=== PATIENT | female | born 1950 | race Caucasian/White ===

== ENCOUNTER 2016-12-01 15:10 | Emergency (ER) | payer MEDICARE ==
--- NOTE | 2016-12-01 16:34 | DIAGNOSTIC IMAGING REPORT ---
PROCEDURE: CT ABDOMEN/PELVIS W/O CONTRAST INDICATION: Right flank pain. TECHNIQUE: Noncontrast axial images were obtained of the entire abdomen and pelvis with sagittal and coronal reformations. COMPARISON: None. FINDINGS: ABDOMEN: 2.5 mm proximal right ureteral calculus with mild right hydronephrosis. There are two additional 1 mm right renal lower pole nonobstructing calculi. Normal left kidney and ureter. Lung base are clear. Heart size is normal. Normal liver. Punctate density in the nondependent portion of the gallbladder, gallstone versus mural calcification. Pancreas, spleen and adrenal glands are normal. Minor atherosclerosis of the aorta. Small hiatal hernia. 1.5 cm fat-containing umbilical hernia. PELVIS: History of appendectomy. Hysterectomy. Mild sigmoid diverticulosis. Adnexa and bladder are unremarkable. Small fat-containing left inguinal hernia. Grade 1 L4-5 anterolisthesis. L5 laminectomy. IMPRESSION: 1. 2.5 mm proximal right ureteral calculus with mild right hydronephrosis 2. Nonobstructing right renal calculi 3. Gallstone versus gallbladder calcification. 4. Hiatal hernia 5. Appendectomy and hysterectomy 6. Results discussed with Dr. Carnes All CT scans at this facility use dose modulation, iterative reconstruction, and/or weight-based dosing when appropriate to reduce radiation dose to as low as reasonably achievable.
--- NOTE | 2016-12-01 17:43 | ED CLINICAL REPORT ---
Clinical Report - Physicians/Mid Levels [facility] [address] [place] [address] 12/01/2016 15:15 Patient: SANDHYA CHARLES Time Seen: 1539; initial patient contact. Arrived- By private vehicle. Historian- patient. HISTORY OF PRESENT ILLNESS Chief Complaint: ABDOMINAL PAIN. This started today. At its maximum, severity described as moderate. When seen in the E.D., severity described as moderate. Modifying factors- worsened by movement. Relieved by rest. No radiation. It is described as located in the right flank. The patient has had nausea. No diarrhea. The patient has an additional complaint of abdominal pain (located in the RLQ). Similar symptoms previously: Once (states it feels similar to kidney stones). REVIEW OF SYSTEMS No fever, chest pain or difficulty breathing. All systems otherwise negative, except as recorded above. PAST HISTORY See nurses notes. Medications: Glucosamine HCl Oral. Lisinopril Oral 10 mg, daily. Allergies: None. SOCIAL HISTORY Never smoker. No alcohol use or drug use. No recent travel. Is a local resident. ADDITIONAL NOTES The nursing notes have been reviewed. PHYSICAL EXAM Vital Signs: 12/01/2016 15:23 BP: 132/61. HR: 65. RR: 16. O2 saturation: 98%. Temp: 97.5 F. Pain level now: 10/10. Oxygen saturation normal. Appearance: Alert. Oriented X3. No acute distress. CVS: Normal heart rate and rhythm. Heart sounds normal. Pulses normal. Respiratory: No respiratory distress. Breath sounds normal. Chest nontender. No rales, rhonchi or wheezes. Abdomen: Soft and nontender. Bowel sounds normal. Back: Normal inspection. Moderate CVA tenderness on the right. Skin: Skin warm and dry. Normal skin color. No rash. Normal skin turgor. Extremities: Extremities exhibit normal ROM. No lower extremity edema. Neuro: No motor deficit. No sensory deficit. LABS, X-RAYS, AND EKG Abdominal CT: . PROCEDURE: CT ABDOMEN/PELVIS W/O CONTRAST INDICATION: Right flank pain. TECHNIQUE: Noncontrast axial images were obtained of the entire abdomen and pelvis with sagittal and coronal reformations. COMPARISON: None. FINDINGS: ABDOMEN: 2.5 mm proximal right ureteral calculus with mild right hydronephrosis. There are two additional 1 mm right renal lower pole nonobstructing calculi. Normal left kidney and ureter. Lung base are clear. Heart size is normal. Normal liver. Punctate density in the nondependent portion of the gallbladder, gallstone versus mural calcification. Pancreas, spleen and adrenal glands are normal. Minor atherosclerosis of the aorta. Small hiatal hernia. 1.5 cm fat-containing umbilical hernia. PELVIS: History of appendectomy. Hysterectomy. Mild sigmoid diverticulosis. Adnexa and bladder are unremarkable. Small fat-containing left inguinal hernia. Grade 1 L4-5 anterolisthesis. L5 laminectomy. IMPRESSION: 1. 2.5 mm proximal right ureteral calculus with mild right hydronephrosis 2. Nonobstructing right renal calculi 3. Gallstone versus gallbladder calcification. 4. Hiatal hernia 5. Appendectomy and hysterectomy. The study was independently viewed by me and interpreted by the radiologist. The study was discussed with the radiologist (via phone and pacs). Laboratory Tests: UA-Culture if indicated: (FLORESITA: 12/01/2016 15:21) ( MsgRcvd 12/01/2016 16:07) Final results Test Result Flag Units (Reference) URINE COLOR YELLOW URINE APPEARANCE SL CLOUDY URINE GLUCOSE NEGATIVE (NEGATIVE) URINE BILIRUBIN NEGATIVE (NEGATIVE) URINE KETONE TRACE (NEGATIVE) URINE SPECIFIC GRAVITY >= 1.030 (1.010-1.030) URINE PH 6.0 (5.0-8.0) URINE PROTEIN NEGATIVE (NEGATIVE) URINE UROBILINOGEN 0.2 EU/dL (0.2-1.0) URINE NITRITE NEGATIVE (NEGATIVE) URINE BLOOD 3+ (NEGATIVE) URINE LEUK ESTERASE TRACE (NEGATIVE) URINE RBC >100 (TNTC) rbc/hpf (0-1) URINE WBC 3-5 wbc/hpf (0-1) URINE EPITHELIAL CELLS 1-3 EPI/hpf (0-5) URINE BACTERIA MODERATE (2+ TO 3+) (NONE SEEN) URINE COMMENT CULTURE INDICATED 1+ MUCUSURINE CULTURES ARE SET-UP BASED ON THE FOLLOWING CRITERIA:POSITIVE NITRITEPOSITIVE LEUKOCYTE ESTERASEGREATER THAN 10 WHITE BLOOD CELLSMODERATE (2+) OR GREATER BACTERIA CBC w Diff: (FLORESITA: 12/01/2016 15:36) ( MsgRcvd 12/01/2016 15:56) Final results Test Result Flag Units (Reference) WHITE BLOOD COUNT 5.3 K/uL (4.5-11.5) RED BLOOD COUNT 4.65 M/uL (4.00-5.20) HEMOGLOBIN 14.2 gm/dL (12.0-16.0) HEMATOCRIT 42.6 % (36.0-46.0) MEAN CELL VOLUME 92 fL (80-100) MEAN CORPUSCULAR HGB 31 pg (26-34) MEAN CORPUSCULAR HGB CONC 33 g/dL (31-37) RED CELL DISTRIBUTION WIDTH 13.4 % (11.6-14.8) PLATELET COUNT 178 K/uL (150-400) NEUTROPHIL % 65.2 % (50-75) LYMPH % 22.5 L % (25-40) MONO % 8.5 % (3-14) EOSINOPHIL % 3.6 % (0-4) BASOPHIL % 0.2 % (0-2) CMP: (FLORESITA: 12/01/2016 15:36) ( MsgRcvd 12/01/2016 16:12) Final results Test Result Flag Units (Reference) GLUCOSE 112 H mg/dL (70-110) BUN 15 mg/dL (7-18) CREATININE 0.8 mg/dL (0.6-1.3) Estimated GFR >60 mL/min Estimated GFR- >60 mL/min Note: Persistent reduction over 3 months in eGFR<60 mL/min/1.73 m2 defines CKD. Patients with eGFR values>=60 mL/min/1.73 m2 may also have CKD if evidence ofpersistent proteinuria. Additional information may be foundat www.kidney.org. SODIUM 140 mmol/L (136-145) POTASSIUM 3.6 mmol/L (3.5-5.1) CHLORIDE 104 mmol/L (98-107) CARBON DIOXIDE 25 mmol/L (21-32) CALCIUM 10.2 H mg/dL (8.5-10.1) TOTAL PROTEIN 6.9 g/dL (6.4-8.2) ALBUMIN 3.9 g/dL (3.3-5.0) BILIRUBIN, TOTAL 1.3 H mg/dL (0.0-1.0) ALKALINE PHOSPHATASE 73 U/L (46-116) AST (SGOT) 24 U/L (15-37) ALT (SGPT) 33 U/L (12-78) . PROGRESS AND PROCEDURES Course of Care: Patient with abdominal pain and hx of kidney stones. patient without CT scan on file with size of stones. Patient agreeable to treatment and plan. work up shows 2.5 mm stone. good chance of spontaneous passage. Pain controlled while in the ED. Continues to be non-toxic. Abdo exam benign. no other findings. Discussed with patient her work up in the ED including, diagnosis, home care, follow up, and return precautions. All questions answered. Patient expressed understanding of these instructions and was agreeable to them. Disposition: Discharged. Condition: good. CLINICAL IMPRESSION Acute right lower quadrant abdominal pain. Moderate nausea (acute). Microscopic hematuria (acute). Right renal colic in the right ureter with hydronephrosis (acute). INSTRUCTIONS Warnings: GENERAL WARNINGS: Return or contact your physician immediately if your condition worsens or changes unexpectedly, if not improving as expected, or if other problems arise. SPECIFICALLY, return if you develop pain, fever, vomiting, the inability to keep fluids down, blood in vomitus, blood in diarrhea, fainting or lightheadedness. Your Current Medications: CONTINUE TAKING THE FOLLOWING MEDICATIONS: Glucosamine HCl Oral. Lisinopril Oral : 10 mg daily. Prescription Medications: Zofran (orally disintegrating tablets) 4 mg: take 1 orally every 8 hours as needed for nausea and vomiting. Dispense ten (10). No refill. Substitution is permissible. Motrin 600 mg tablets: take 1 tablet orally every 6 hours as needed for pain, stiffness or swelling. Dispense thirty (30). No refill. Substitution is permissible. Percocet 5 mg/325 mg: take 1 tablet orally every 6 hours as needed for pain. Dispense twenty (20). No refill. Substitution is permissible. Follow-up: Return to the emergency department as needed. Follow up with your doctor in three days. Reason for referral: recheck today's concerns. Summary of care provided to patient via paper. Screening today revealed the patient's blood pressure to be in the normal range. The patient should follow up with a primary care provider for blood pressure management. Understanding of the discharge instructions verbalized by patient. Follow-up with: Yuval Garces MD, Urology, , [id number] [facility] , [place], [address] Follow up in one week. Reason for referral: recheck today's concerns. Summary of care provided to patient via paper. (Electronically signed by Charlie Carnes Dr. 12/04/2016 6:09)
--- NOTE | 2016-12-01 17:43 | ED NURSING NOTES ---
Clinical Report - Nurses [facility] [address] [place] [address] 12/01/2016 15:15 [id number] Triage time 15:Dec 01 2016. Acuity: LEVEL 3. Chief Complaint: ABDOMINAL PAIN. 15:22 12/01/16. 15:12/01/16. Alert. SEPSIS SCREEN: Sepsis Screen. Negative (no infection suspected/documented). --15:29 Jose Antonio Little R.N. 15:23 12/01/16. BP: 132/61. HR: 65. RR: 16. O2 saturation: 98% on room air. Temp: 97.5 F (oral). Pain level now: 03/10. --15:29 Jose Antonio Little R.N. Weight: 111.1 kg stated. Height/Length: 65 inches Per Patient. BMI: 40.8. --15:24 Jose Antonio Little R.N. Medications Lisinopril Oral 10 mg, daily. --15:26 Jose Antonio Little R.N. Glucosamine HCl Oral. --15:26 Jose Antonio Little R.N. Medication/allergy information source: the patient and patient's family. --15:29 Jose Antonio Little R.N. Allergies None. --15:26 Jose Antonio Little R.N. History Arrived by private vehicle. Historian: patient. Accompanied by family. Primary physician ([facility]). 15:22 12/01/16. This started today. ( Abd pain that radiates to right side.). She has had nausea. Treatment INTERNAL AUDIT SENIOR MANAGER: None. PAST MEDICAL HX: Immunizations: up-to-date. The patient has had a hysterectomy. SOCIAL HX: Smoker- current status unknown. No alcohol use or drug use. No recent travel. No infectious disease exposure. No known contact with a sick individual. ABUSE ASSESSMENT: No report of abuse. FALL RISK ASSESSMENT: Fall risk assessment completed. No fall risk identified. NUTRITIONAL RISK ASSESSMENT: The nutritional risk assessment revealed no deficiencies. FUNCTIONAL ASSESSMENT: Functional assessment: no impairments noted. LEARNING NEEDS ASSESSMENT: The learning needs assessment revealed no barriers. SKIN INTEGRITY ASSESSMENT: Skin integrity risk assessment completed. No skin integrity risk identified. --15:29 Jose Antonio Little R.N. PROBLEMS: Hypertension. --15:26 Jose Antonio Little R.N. Nephrolithiasis. --15:27 Jose Antonio Little R.N. Chest Pain. --15:27 Jose Antonio Little R.N. ADDITIONAL SURGERIES: Appendectomy. Hysterectomy. --15:27 Jose Antonio Little R.N. Assessment 15:12/01/16. --15:29 Jose Antonio Little R.N. Interventions 15:12/01/16. 15:12/01/16. ID and allergy band on patient. To treatment room. --15:29 Jose Antonio Little R.N. PHYSICAL ASSESSMENT 15:12/01/16. Ambulatory to room. GENERAL / NEURO / PSYCH: Alert. Oriented X 4. RESPIRATORY: Respirations not labored. GI / : Abdominal tenderness. ( Last BM was this AM). SKIN: Skin is warm and dry. --15:28 Jose Antonio Little R.N. NURSING PROGRESS NOTES 15:12/01/16. The plan of care for this patient has been created. Patient gowned. Head of bed elevated. Reassurance given. Call light placed in reach. Side rails up x 2. Bed placed in lowest position. Brakes of bed on. Patient ready for evaluation- chart flagged and ED physician notified. --15:29 Jose Antonio Little R.N. <<STRICKEN ENTRY-- 15:39 12/01/2016 Site #1 started via IV in the right with an 20g angiocath, with aseptic technique and good blood return; one attempt. Blood drawn: rainbow set. Labeled in the presence of the patient and sent to the lab. Saline lock flushed with 10 mL saline. --15:40 Jose Antonio Little R.N. --END STRIKE>> Correction. --15:43 Jose Antonio Little R.N. 15:39 12/01/2016 Site #1 started via IV in the right antecubital space with an 20g angiocath, with aseptic technique and good blood return; one attempt. Blood drawn: rainbow set. Labeled in the presence of the patient and sent to the lab. Saline lock flushed with 10 mL saline. --15:43 Jose Antonio Little R.N. 15:42 12/01/2016 Zofran (Ondansetron HCl) IVP 4 mg given over 2 minute(s) via site #1. Allergies verified and confirmed 5 rights. IV patency established. IV site checked: no pain, redness, or swelling. IV flushed thoroughly pre- and post-medication administration. IVP given by RN. --15:42 Jose Antonio Little R.N. 15:54 12/01/2016 Started bag #1 1000 mL IV Fluids IV NS (Saline); at 1000 mL/hr over 1 hour(s) via site #1. Allergies verified and confirmed 5 rights. IV patency established. IV site checked: no pain, redness, or swelling. IV flushed thoroughly pre- and post-medication administration. Completed per protocol. --15:54 Jose Antonio Little R.N. 15:54 12/01/2016 Morphine IVP 8 mg given over 4 minute(s) via site #1. Allergies verified, confirmed 5 rights and sedative warning given to the patient. IV patency established. IV site checked: no pain, redness, or swelling. IV flushed thoroughly pre- and post-medication administration. IVP given by RN. --15:55 Jose Antonio Little R.N. 15:55 12/01/16. Pulse oximeter and NIBP monitor placed on patient; monitor alarms on. --15:55 Jose Antonio Little R.N. 15:58 12/01/16. --15:58 Jose Antonio Little R.N. 15:58 12/01/16. HR: 59. RR: 14. O2 saturation: 98% on room air. --15:58 Jose Antonio Little R.N. 15:58 12/01/16. Reassessment after medication administered. She is resting quietly. Overall patient status is improved- she states feels better. --15:58 Jose Antonio Little R.N. 16:24 12/01/16. BP: 127/57. HR: 64. RR: 14. O2 saturation: 94% on room air. --16:24 Jose Antonio Little R.N. 16:24 12/01/16. --16:24 Jose Antonio Little R.N. 16:24 12/01/16. Reassessment after medication administered. Overall patient status is improved- she states feels better. --16:24 Jose Antonio Little R.N. 16:24 12/01/16. Patient informed about reason for wait and about plan of care. --16:24 Jose Antonio Little R.N. 16:24 12/01/16. Patient waiting for lab and CT results. --16:24 Jose Antonio Little R.N. 16:49 12/01/2016 Toradol IVP 30 mg given over 2 minute(s) via site #1. Allergies verified and confirmed 5 rights. IV patency established. IV site checked: no pain, redness, or swelling. IV flushed thoroughly pre- and post-medication administration. IVP given by RN. --16:49 Jose Antonio Little R.N. 16:49 12/01/16. BP: 114/52. HR: 60. RR: 14. O2 saturation: 100% on room air. Pain level now: 0/10. --16:50 Jose Antonio Little R.N. 16:50 12/01/16. --16:50 Jose Antonio Little R.N. 17:47 12/01/2016 IV Fluids IV NS Discontinued: bag #1 infused upon discharge. Total amount infused: 1000 mL. IV patency established. IV site checked: no pain, redness, or swelling. IV flushed thoroughly. --17:57 Jose Antonio Little R.N. DISPOSITION / DISCHARGE 17:49 12/01/2016 Site #1 removed upon admission. Catheter intact. --17:54 Jose Antonio Little R.N. 17:56 12/01/16. Condition at departure: improved. The goals identified in the patient's plan of care were met. No learning barriers present. Discharge instructions provided and reviewed with the patient. Reviewed warnings. Reviewed medication(s). Treatments reviewed. Patient and spouse verbalized understanding. Written instructions provided in Danish. The patient was discharged by the physician. She was discharged home and accompanied by family. She left the Emergency Department ambulatory and via private vehicle. Family member driving. FALL RISK ASSESSMENT: Fall risk assessment completed. No fall risk identified. --17:56 Jose Antonio Little R.N. 17:53 12/01/16. BP: 121/72. HR: 68. RR: 14. O2 saturation: 100% on room air. Temp: 98.2 F (oral). Pain level now: 0/10. --17:56 Jose Antonio Little R.N. 18:00 12/01/16. ( Pt educated on how to strain urine and to provide passed stone to PCP in follow up appt). --18:00 Jose Antonio Little R.N. 18:00 12/01/16. Departure time: 18:00 Dec 01 2016. --18:00 Jose Antonio Little R.N. Locked/Released at 12/01/2016 18:01 by Jose Antonio Little R.N.
--- NOTE | 2016-12-01 17:43 | ED ORDER SUMMARY ---
..... Patient: SANDHYA CHARLES OrderSheet [facility] VisitID: [id number] [place] [address] 66y, F Registration Date/Time: 12/01/2016 ORDER SHEET Weight: 111.1 kg (stated) Allergies: None GENERAL ORDERS: UA-Culture if indicated Urgent (15:30 12/01/2016 JBoardley R.N. per protocol) (Ack 15:31 LNations ER Tech1) (15:40 JBoardley R.N.) CBC w Diff Urgent (15:39 12/01/2016 JBoardley R.N. per protocol) (Ack 15:41 LNations ER Tech1) (15:43 JBoardley R.N.) CMP Urgent (15:39 12/01/2016 JBoardley R.N. per protocol) (Ack 15:41 LNations ER Tech1) (15:43 JBoardley R.N.) CT Abd/Pel wo Cont Urgent (15:52 12/01/2016 Kandy Chen) (Ack 15:53 LNations ER Tech1) ([facility] MEDICATION ORDERS: IV FLUIDS: IV Saline Lock (15:39 12/01/2016 JBoardley R.N. per protocol) (15:40 JBoardley R.N.) Zofran IV 4 mg (NOW) (15:42 12/01/2016 JBoardley R.N. per protocol) (15:42 JBoardley R.N.) Morphine IV 8 mg (HIGH ALERT MEDICATION, NOW) (15:52 12/01/2016 Kandy Chen) (Ack 15:53 JBoardley R.N.) (15:55 JBoardley R.N.) IV NS : initial bolus 1000 mL (1000 mL/hr), then none - for X1 (NOW) (15:52 12/01/2016 Kandy Chen) (Ack 15:53 JBoardley R.N.) (15:54 JBoardley R.N.) Toradol IV 30 mg (NOW) (16:35 12/01/2016 Kandy Chen) (Ack 16:44 Kallie Dia.NFrancesca) (16:49 Kallie R.NFrancesca) ORDER SHEET NOTES: [Electronically signed by Jose Antonio Little R.N. (18:12/01/2016)] [Electronically signed by Charlie Carnes Dr. (06:09 12/04/2016)] [Electronically locked/signed by Jose Antonio Little R.N. (18:01 12/01/2016)]
--- NOTE | 2016-12-01 17:43 | ED ORDER SUMMARY ---
..... Patient: SANDHYA CHARLES OrderSheet [facility] VisitID: [id number] [place] [address] 66y, F Registration Date/Time: 12/01/2016 ORDER SHEET Weight: 111.1 kg (stated) Allergies: None GENERAL ORDERS: UA-Culture if indicated Urgent (15:30 12/01/2016 JBoardley R.N. per protocol) (Ack 15:31 LNations ER Tech1) (15:40 JBoardley R.N.) CBC w Diff Urgent (15:39 12/01/2016 JBoardley R.N. per protocol) (Ack 15:41 LNations ER Tech1) (15:43 JBoardley R.N.) CMP Urgent (15:39 12/01/2016 JBoardley R.N. per protocol) (Ack 15:41 LNations ER Tech1) (15:43 JBoardley R.N.) CT Abd/Pel wo Cont Urgent (15:52 12/01/2016 Kandy Chen) (Ack 15:53 LNations ER Tech1) (16:20 [facility] MEDICATION ORDERS: IV FLUIDS: IV Saline Lock (15:39 12/01/2016 JBoardley R.N. per protocol) (15:40 JBoardley R.N.) Zofran IV 4 mg (NOW) (15:42 12/01/2016 JBoardley R.N. per protocol) (15:42 JBoardley R.N.) Morphine IV 8 mg (HIGH ALERT MEDICATION, NOW) (15:52 12/01/2016 Kandy Chen) (Ack 15:53 JBoardley R.N.) (15:55 JBoardley R.N.) IV NS : initial bolus 1000 mL (1000 mL/hr), then none - for X1 (NOW) (15:52 12/01/2016 Kandy Chen) (Ack 15:53 JBoardley R.N.) (15:54 JBoardley R.N.) Toradol IV 30 mg (NOW) (16:35 12/01/2016 Kandy Chen) (Ack 16:44 Kallie Dia.NFrancesca) (16:49 Kallie R.NFrancesca) ORDER SHEET NOTES: [Electronically signed by Jose Antonio Little R.N. (18:12/01/2016)] [Electronically signed by Charlie Carnes Dr. (06:09 12/04/2016)] [Electronically locked/signed by Jose Antonio Little R.N. (18:01 12/01/2016)]
--- NOTE | 2016-12-04 06:09 | ED DISCHARGE INSTRUCTIONS ---
Patient: SANDHYA CHARLES General Instructions [facility] VisitID: [id number] [place] [address] 66y, F Registration Date/Time: 12/01/2016 Acute right lower quadrant abdominal pain. Moderate nausea (acute). Microscopic hematuria (acute). Right renal colic in the right ureter with hydronephrosis (acute). INSTRUCTIONS Warnings: GENERAL WARNINGS: Return or contact your physician immediately if your condition worsens or changes unexpectedly, if not improving as expected, or if other problems arise. SPECIFICALLY, return if you develop pain, fever, vomiting, the inability to keep fluids down, blood in vomitus, blood in diarrhea, fainting or lightheadedness. Your Current Medications: CONTINUE TAKING THE FOLLOWING MEDICATIONS: Glucosamine HCl Oral. Lisinopril Oral : 10 mg daily. Prescription Medications: Zofran (orally disintegrating tablets) 4 mg: take 1 orally every 8 hours as needed for nausea and vomiting. Dispense ten (10). No refill. Substitution is permissible. Motrin 600 mg tablets: take 1 tablet orally every 6 hours as needed for pain, stiffness or swelling. Dispense thirty (30). No refill. Substitution is permissible. Percocet 5 mg/325 mg: take 1 tablet orally every 6 hours as needed for pain. Dispense twenty (20). No refill. Substitution is permissible. Follow-up: Return to the emergency department as needed. Follow up with your doctor in three days. Reason for referral: recheck today's concerns. Summary of care provided to patient via paper. Screening today revealed the patient's blood pressure to be in the normal range. The patient should follow up with a primary care provider for blood pressure management. Understanding of the discharge instructions verbalized by patient. Follow-up with: Yuval Garces MD, Urology, , [address], [place], [address] Follow up in one week. Reason for referral: recheck today's concerns. Summary of care provided to patient via paper. ADDITIONAL INFORMATION Abdominal Pain, Unknown Cause (Female) The exact cause of your abdominal (stomach) pain is not certain. This does not mean that this is something to worry about, or the right tests were not done. Everyone likes to know the exact cause of the problem, but sometimes with abdominal pain, there is no clear-cut cause, and this could be a good thing. The good news is that your symptoms can be treated, and you will feel better. Your condition does not seem serious now; however, sometimes the signs of a serious problem may take more time to appear. For this reason,it is important for you to watch for any new symptoms, problems,or worsening of your condition. Over the next few days, the abdominal pain may come and go, or be continuous. Other common symptoms can include nausea and vomiting. Sometimes it can be difficult to tell if you feel nauseous, you may just feel bad and not associate that feeling with nausea. Constipation, diarrhea, and a fever may go along with the pain. The pain may continue even if treated correctly over the following days. Depending on how things go, sometimes the cause can become clear and may require further or different treatment. Additional evaluations, medications, or tests may be needed. Home care Your health care provider may prescribe medications for pain, symptoms, or an infection. Follow the health care provider's instructions for taking these medications. General care Rest until your next exam. No strenuous activities. Try to find positions that ease discomfort. A small pillow placed on the abdomen may help relieve pain. Something warm on your abdomen (such as a heating pad) may help, but be careful not to burn yourself. Diet Do not force yourself to eat, especially if having cramps, vomiting, or diarrhea. Water is important so you do not get dehydrated. Soup may also be good. Sports drinks may also help, especially if they are not too acidic. Make sure you don't drink sugary drinks as this can make things worse. Take liquids in small amounts. Do not guzzle them. Caffeine sometimes makes the pain and cramping worse. Avoid dairy products if you have vomiting or diarrhea. Don't eat large amounts at a time. Wait a few minutes between bites. Eat a diet low in fiber (called a low-residue diet). Foods allowed include refined breads, white rice, fruit and vegetable juices without pulp, tender meats. These foods will pass more easily through the intestine. Avoid whole-grain foods, whole fruits and vegetables, meats, seeds and nuts, fried or fatty foods, dairy, alcohol and spicy foods until your symptoms go away. Follow-up care Follow up with your health care provider as instructed, or if your pain does not begin to improve in the next 24 hours. When to seek medical care Seek prompt medical care if any of the following occur: Pain gets worse or moves to the right lower abdomen New or worsening vomiting or diarrhea Swelling of the abdomen Unable to pass stool for more than three days Fever of 100.4F (38C) or higher, or as directed by your healthcare provider. Blood in vomit or bowel movements (dark red or black color) Jaundice (yellow color of eyes and skin) Weakness, dizziness Chest, arm, back, neck or jaw pain Unexpected vaginal bleeding or missed period Call 911 Call emergency services if any of the following occur: Trouble breathing Confusion Fainting or loss of consciousness Rapid heart rate Seizure Kidney Stone (W/ Colic) The sharp cramping pain and nausea/vomiting that you have is due to a small stone which has formed in the kidney and is now passing down a narrow tube (ureter) on its way to your bladder. Once it reaches your bladder, the pain will stop. The stone may pass in your urine stream in one piece. [The size may be 1/16" to 1/4" (1-6mm)]. Or, the stone may also break up into hema fragments which you may not even notice. Once you have had a kidney stone, you are at risk for developing another one in the future. Home Care: Drink plenty of fluids (at least 8 to 10 glasses of water a day). Most stones will pass on their own, but may take from a few hours to a few days. Sometimes the stone is too large to pass by itself and special methods will have to be used to remove the stone. Each time you urinate, do so in a jar. Pour the urine from the jar through the strainer and into the toilet. Continue doing this until 24 hours after your pain stops. By then, if there was a kidney stone, it should pass from your bladder. Some stones dissolve into sand-like particles and pass right through the strainer. In that case, you wont ever see a stone. Save any stone that you find in the strainer and bring it to your doctor for analysis. It may be possible to prevent certain types of stones from forming. Therefore, it is important to know what kind of stone you have. Try to stay as active as possible since this will help the stone pass. Do not stay in bed unless your pain prevents you from getting up. You may notice a red, pink or brown color to your urine. This is normal while passing a kidney stone. Follow Up with your doctor or return to this facility if the pain lasts more than 48 hours. Get Prompt Medical Attention if any of the following occur: Pain that is not controlled by the medicine given Repeated vomiting or unable to keep down fluids Weakness, dizziness or fainting Fever of 100.4F (38C) or higher, or as directed by your healthcare provider Passage of solid red or brown urine (can't see through it) or urine with lots of blood clots Unable to pass urine for 8 hours and increasing bladder pressure Blood In The Urine Blood in the urine ("hematuria") has many possible causes. If it occurs after an injury (such as a car accident or fall), it is most often a sign of bruising to the kidney or bladder. Common medical causes of blood in the urine include urinary tract infection, kidney stone, inflammation, tumors, or certain other diseases of the kidney or bladder. Menstruation can cause blood to appear in the urine sample, although it is not coming from the urinary tract. If only a trace amount of blood is present, it will show up on the urine test, even though the urine may be yellow and not pink or red. This may occur with any of the above conditions, as well as heavy exercise or high fever. In this case, your doctor may want to repeat the urine test on another day. This will show if the blood is still present. If so, then other tests can be done to find out the cause. Home Care: If your urine does not appear bloody (pink, brown or red) then you do not need to restrict your activity in any way. If you can see blood in your urine, rest and avoid heavy exertion until your next exam. Do not use aspirin or anti-inflammatory medicine like ibuprofen (Motrin, Advil) or naproxen (Naprosyn, Aleve). These thin the blood and may increase bleeding. Follow Up with your doctor or as advised by our staff. If you were injured and had blood in your urine, you should have a repeat urine test in 1-2 days. Contact your doctor or return to this facility for this test. [NOTE: A radiologist will review any X-rays that were taken. We will notify you of any new findings that may affect your care.] Get Prompt Medical Attention if any of the following occur: Bright red blood or blood clots in the urine (if a new symptom) Weakness, dizziness or fainting New groin, abdominal or back pain Fever of 100.4F (38C) or higher, or as directed by your healthcare provider Repeated vomiting Bleeding from nose, gums or easy bruising Ondansetron Oral disintegrating tablet What is this medicine? ONDANSETRON (on DAYANARA se brett) is used to treat nausea and vomiting caused by chemotherapy. It is also used to prevent or treat nausea and vomiting after surgery. How should I use this medicine? These tablets are made to dissolve in the mouth. Do not try to push the tablet through the foil backing. With dry hands, peel away the foil backing and gently remove the tablet. Place the tablet in the mouth and allow it to dissolve, then swallow. While you may take these tablets with water, it is not necessary to do so. Talk to your crusher assembler regarding the use of this medicine in children. Special care may be needed. What side effects may I notice from receiving this medicine? Side effects that you should report to your doctor or health health care marketing manager as soon as possible: allergic reactions like skin rash, itching or hives, swelling of the face, lips, or tongue breathing problems dizziness fast or irregular heartbeat feeling faint or lightheaded, falls fever and chills swelling of the hands and feet tightness in the chest Side effects that usually do not require medical attention (report to your doctor or health health care marketing manager if they continue or are bothersome): constipation or diarrhea headache What may interact with this medicine? Do not take this medicine with any of the following medications: -apomorphine -cisapride -dofetilide -dronedarone -pimozide -thioridazine -ziprasidone This medicine may also interact with the following medications: -carbamazepine -phenytoin -rifampicin -tramadol -other medicines that prolong the QT interval (cause an abnormal heart rhythm) What if I miss a dose? If you miss a dose, take it as soon as you can. If it is almost time for your next dose, take only that dose. Do not take double or extra doses. Where should I keep my medicine? Keep out of the reach of children. Store between 2 and 30 degrees C (36 and 86 degrees F). Throw away any unused medicine after the expiration date. What should I tell my health care provider before I take this medicine? They need to know if you have any of these conditions: heart disease history of irregular heartbeat liver disease low levels of magnesium or potassium in the blood an unusual or allergic reaction to ondansetron, granisetron, other medicines, foods, dyes, or preservatives or trying to get breast-feeding What should I watch for while using this medicine? Check with your doctor or health health care marketing manager as soon as you can if you have any sign of an allergic reaction. Ibuprofen Oral tablet What is this medicine? IBUPROFEN (eye BYOO proe fen) is a non-steroidal anti-inflammatory drug (NSAID). It is used for dental pain, fever, headaches or migraines, osteoarthritis, rheumatoid arthritis, or painful monthly periods. It can also relieve minor aches and pains caused by a cold, flu, or sore throat. How should I use this medicine? Take this medicine by mouth with a glass of water. Follow the directions on the prescription label. Take this medicine with food if your stomach gets upset. Try to not lie down for at least 10 minutes after you take the medicine. Take your medicine at regular intervals. Do not take your medicine more often than directed. A special MedGuide will be given to you by the pharmacist with each prescription and refill. Be sure to read this information carefully each time. Talk to your crusher assembler regarding the use of this medicine in children. Special care may be needed. What side effects may I notice from receiving this medicine? Side effects that you should report to your doctor or health health care marketing manager as soon as possible: allergic reactions like skin rash, itching or hives, swelling of the face, lips, or tongue black or bloody stools, blood in the urine or in vomit breathing problems changes in vision chest pain general ill feeling or flu-like symptoms nausea or vomiting redness, blistering, peeling or loosening of the skin, including inside the mouth slurred speech or weakness on one side of the body stomach pain unexplained weight gain or swelling unusually weak or tired yellowing of eyes or skin Side effects that usually do not require medical attention (report to your doctor or health health care marketing manager if they continue or are bothersome): constipation or diarrhea dizziness gas or heartburn stomach upset What may interact with this medicine? Do not take this medicine with any of the following medications: cidofovir ketorolac methotrexate pemetrexed This medicine may also interact with the following medications: alcohol aspirin diuretics lithium other drugs for inflammation like prednisone warfarin What if I miss a dose? If you miss a dose, take it as soon as you can. If it is almost time for your next dose, take only that dose. Do not take double or extra doses. Where should I keep my medicine? Keep out of the reach of children. Store at room temperature between 15 and 30 degrees C (59 and 86 degrees F). Keep container tightly closed. Throw away any unused medicine after the expiration date. What should I tell my health care provider before I take this medicine? They need to know if you have any of these conditions: asthma cigarette smoker drink more than 3 alcohol containing drinks a day heart disease or circulation problems such as heart failure or leg edema (fluid retention) high blood pressure kidney disease liver disease stomach bleeding or ulcers an unusual or allergic reaction to ibuprofen, aspirin, other NSAIDS, other medicines, foods, dyes, or preservatives or trying to get breast-feeding What should I watch for while using this medicine? Tell your doctor or healthcare professional if your symptoms do not start to get better or if they get worse. This medicine does not prevent heart attack or stroke. In fact, this medicine may increase the chance of a heart attack or stroke. The chance may increase with longer use of this medicine and in people who have heart disease. If you take aspirin to prevent heart attack or stroke, talk with your doctor or health health care marketing manager. Do not take other medicines that contain aspirin, ibuprofen, or naproxen with this medicine. Side effects such as stomach upset, nausea, or ulcers may be more likely to occur. Many medicines available without a prescription should not be taken with this medicine. This medicine can cause ulcers and bleeding in the stomach and intestines at any time during treatment. Ulcers and bleeding can happen without warning symptoms and can cause . To reduce your risk, do not smoke cigarettes or drink alcohol while you are taking this medicine. You may get drowsy or dizzy. Do not drive, use machinery, or do anything that needs mental alertness until you know how this medicine affects you. Do not stand or sit up quickly, especially if you are an older patient. This reduces the risk of dizzy or fainting spells. This medicine can cause you to bleed more easily. Try to avoid damage to your teeth and gums when you brush or floss your teeth. Oxycodone Hydrochloride, Acetaminophen Oral tablet What is this medicine? ACETAMINOPHEN; OXYCODONE (a set a HEATHER dustin fen; ox i KOE done) is a pain reliever. It is used to treat mild to moderate pain. How should I use this medicine? Take this medicine by mouth with a full glass of water. Follow the directions on the prescription label. Take your medicine at regular intervals. Do not take your medicine more often than directed. Talk to your crusher assembler regarding the use of this medicine in children. Special care may be needed. Patients over 65 years old may have a stronger reaction and need a smaller dose. What side effects may I notice from receiving this medicine? Side effects that you should report to your doctor or health health care marketing manager as soon as possible: allergic reactions like skin rash, itching or hives, swelling of the face, lips, or tongue breathing difficulties, wheezing confusion light headedness or fainting spells severe stomach pain yellowing of the skin or the whites of the eyes Side effects that usually do not require medical attention (report to your doctor or health health care marketing manager if they continue or are bothersome): dizziness drowsiness nausea vomiting What may interact with this medicine? alcohol antihistamines barbiturates like amobarbital, butalbital, butabarbital, methohexital, pentobarbital, phenobarbital, thiopental, and secobarbital benztropine drugs for bladder problems like solifenacin, trospium, oxybutynin, tolterodine, hyoscyamine, and methscopolamine drugs for breathing problems like ipratropium and tiotropium drugs for certain stomach or intestine problems like propantheline, homatropine methylbromide, glycopyrrolate, atropine, belladonna, and dicyclomine general anesthetics like etomidate, ketamine, nitrous oxide, propofol, desflurane, enflurane, halothane, isoflurane, and sevoflurane medicines for depression, anxiety, or psychotic disturbances medicines for sleep muscle relaxants naltrexone narcotic medicines (opiates) for pain phenothiazines like perphenazine, thioridazine, chlorpromazine, mesoridazine, fluphenazine, prochlorperazine, promazine, and trifluoperazine scopolamine tramadol trihexyphenidyl What if I miss a dose? If you miss a dose, take it as soon as you can. If it is almost time for your next dose, take only that dose. Do not take double or extra doses. Where should I keep my medicine? Keep out of the reach of children. This medicine can be abused. Keep your medicine in a safe place to protect it from theft. Do not share this medicine with anyone. Selling or giving away this medicine is dangerous and against the law. Store at room temperature between 20 and 25 degrees C (68 and 77 degrees F). Keep container tightly closed. Protect from light. This medicine may cause accidental overdose and if it is taken by other adults, children, or pets. Flush any unused medicine down the toilet to reduce the chance of harm. Do not use the medicine after the expiration date. What should I tell my health care provider before I take this medicine? They need to know if you have any of these conditions: brain tumor Crohn's disease, inflammatory bowel disease, or ulcerative colitis drink more than 3 alcohol containing drinks per day drug abuse or addiction head injury heart or circulation problems kidney disease or problems going to the bathroom liver disease lung disease, asthma, or breathing problems an unusual or allergic reaction to acetaminophen, oxycodone, other opioid analgesics, other medicines, foods, dyes, or preservatives or trying to get breast-feeding What should I watch for while using this medicine? Tell your doctor or health health care marketing manager if your pain does not go away, if it gets worse, or if you have new or a different type of pain. You may develop tolerance to the medicine. Tolerance means that you will need a higher dose of the medication for pain relief. Tolerance is normal and is expected if you take this medicine for a long time. Do not suddenly stop taking your medicine because you may develop a severe reaction. Your body becomes used to the medicine. This does NOT mean you are addicted. Addiction is a behavior related to getting and using a drug for a non-medical reason. If you have pain, you have a medical reason to take pain medicine. Your doctor will tell you how much medicine to take. If your doctor wants you to stop the medicine, the dose will be slowly lowered over time to avoid any side effects. You may get drowsy or dizzy. Do not drive, use machinery, or do anything that needs mental alertness until you know how this medicine affects you. Do not stand or sit up quickly, especially if you are an older patient. This reduces the risk of dizzy or fainting spells. Alcohol may interfere with the effect of this medicine. Avoid alcoholic drinks. There are different types of narcotic medicines (opiates) for pain. If you take more than one type at the same time, you may have more side effects. Give your health care provider a list of all medicines you use. Your doctor will tell you how much medicine to take. Do not take more medicine than directed. Call emergency for help if you have problems breathing. The medicine will cause constipation. Try to have a bowel movement at least every 2 to 3 days. If you do not have a bowel movement for 3 days, call your doctor or health health care marketing manager. Do not take Tylenol (acetaminophen) or medicines that have acetaminophen with this medicine. Too much acetaminophen can be very dangerous. Many nonprescription medicines contain acetaminophen. Always read the labels carefully to avoid taking more acetaminophen. You have been given the following additional information: Abdominal Pain, Unknown Cause, (Female) Kidney Stone W/ Colic Hematuria Ondansetron Oral disintegrating tablet Ibuprofen Oral tablet Oxycodone Hydrochloride, Acetaminophen Oral tablet (Electronically signed by Charlie Carnes Dr. 12/04/2016 6:09)
--- NOTE | 2016-12-04 06:09 | ED MAR SUMMARY ---
..... Medication Administration Record [facility] [address] [place] [address] Patient: SANDHYA CHARLES Visit ID: [id number] 66y, F Weight: 111.1 kg Height/Length: 65 in BMI: 40.8 ALLERGIES: None Given 15:42 12/01/2016 Jose Antonio Little R.N. Medication Administered: ZOFRAN [IVP] (ONDANSETRON HCL), Dose: 4 mg IVP over 2 minute(s), Site: #1 right AC. Medication Ordered: Zofran IV 4 mg (NOW). Given 15:54 12/01/2016 Jose Antonio Little R.N. Medication Administered: MORPHINE [IVP], Dose: 8 mg IVP over 4 minute(s), Site: #1 right AC. Medication Ordered: Morphine IV 8 mg (HIGH ALERT MEDICATION, NOW). Start 15:54 12/01/2016 Jose Antonio Little R.N., Stop 17:47 12/01/2016 Jose Antonio Little R.N. Medication Administered: IV NS (SALINE), Dose: IV Fluids over 1 hour(s), Rate: 1000 mL/hr, Dispensed: 1000 mL bag, Site: #1 right AC. Medication Ordered: IV NS : initial bolus 1000 mL (1000 mL/hr), then none - for X1 (NOW). Given 16:49 12/01/2016 Jose Antonio Little R.N. Medication Administered: TORADOL [IVP], Dose: 30 mg IVP over 2 minute(s), Site: #1 right AC. Medication Ordered: Toradol IV 30 mg (NOW).
--- NOTE | 2016-12-04 06:09 | ED MAR SUMMARY ---
..... Medication Administration Record [facility] [address] [place] [address] Patient: SANDHYA CHARLES Visit ID: [id number] 66y, F Weight: 111.1 kg Height/Length: 65 in BMI: 40.8 ALLERGIES: None Given 15:42 12/01/2016 Jose Antonio Little R.N. Medication Administered: ZOFRAN [IVP] (ONDANSETRON HCL), Dose: 4 mg IVP over 2 minute(s), Site: #1 right AC. Medication Ordered: Zofran IV 4 mg (NOW). Given 15:54 12/01/2016 Jose Antonio Little R.N. Medication Administered: MORPHINE [IVP], Dose: 8 mg IVP over 4 minute(s), Site: #1 right AC. Medication Ordered: Morphine IV 8 mg (HIGH ALERT MEDICATION, NOW). Start 15:54 12/01/2016 Jose Antonio Little R.N., Stop 17:47 12/01/2016 Jose Antonio Little R.N. Medication Administered: IV NS (SALINE), Dose: IV Fluids over 1 hour(s), Rate: 1000 mL/hr, Dispensed: 1000 mL bag, Site: #1 right AC. Medication Ordered: IV NS : initial bolus 1000 mL (1000 mL/hr), then none - for X1 (NOW). Given 16:49 12/01/2016 Jose Antonio Little R.N. Medication Administered: TORADOL [IVP], Dose: 30 mg IVP over 2 minute(s), Site: #1 right AC. Medication Ordered: Toradol IV 30 mg (NOW).
--- NOTE | 2016-12-04 06:09 | ED MED RECONCILIATION SUMMARY ---
Patient: SANDHYA CHARLES Medication Reconciliation Report VisitID: [id number] [address] [place] [address] 66y, F Registration Date/Time: 12/01/2016 Weight: 111.1 kg Height/Length: 65 in. BMI: 40.8 ALLERGIES: None The patient's Home Medications are listed below: CONTINUE TAKING THE FOLLOWING MEDICATIONS: Glucosamine HCl Oral Lisinopril Oral 10 mg, daily The source(s) of the original Home Medication information: patient patient's family member The following Medications were given to the patient in the Emergency Department: Zofran [IVP] IVP 4 mg, administered: 12/01/2016 3:42:00 PM IV NS IV Fluids bolus 0, then 1000 mL/hr, administered: 12/01/2016 3:54:00 PM Morphine [IVP] IVP 8 mg, administered: 12/01/2016 3:54:00 PM Toradol [IVP] IVP 30 mg, administered: 12/01/2016 4:49:00 PM The following Medications were prescribed to the patient: Zofran (orally disintegrating tablets) 4 mg: take 1 orally every 8 hours as needed for nausea and vomiting. Dispense ten (10). No refill. Substitution is permissible. -- Charlie Carnes Dr. Motrin 600 mg tablets: take 1 tablet orally every 6 hours as needed for pain, stiffness or swelling. Dispense thirty (30). No refill. Substitution is permissible. -- Charlie Carnes Dr. Percocet 5 mg/325 mg: take 1 tablet orally every 6 hours as needed for pain. Dispense twenty (20). No refill. Substitution is permissible. -- Charlie Carnes Dr.
--- NOTE | 2016-12-04 06:09 | ED MED RECONCILIATION SUMMARY ---
Patient: SANDHYA CHARLES Medication Reconciliation Report [facility] VisitID: [id number] [address] [place] [address] 66y, F Registration Date/Time: 12/01/2016 Weight: 111.1 kg Height/Length: 65 in. BMI: 40.8 ALLERGIES: None The patient's Home Medications are listed below: CONTINUE TAKING THE FOLLOWING MEDICATIONS: Glucosamine HCl Oral Lisinopril Oral 10 mg, daily The source(s) of the original Home Medication information: patient patient's family member The following Medications were given to the patient in the Emergency Department: Zofran [IVP] IVP 4 mg, administered: 12/01/2016 3:42:00 PM IV NS IV Fluids bolus 0, then 1000 mL/hr, administered: 12/01/2016 3:54:00 PM Morphine [IVP] IVP 8 mg, administered: 12/01/2016 3:54:00 PM Toradol [IVP] IVP 30 mg, administered: 12/01/2016 4:49:00 PM The following Medications were prescribed to the patient: Zofran (orally disintegrating tablets) 4 mg: take 1 orally every 8 hours as needed for nausea and vomiting. Dispense ten (10). No refill. Substitution is permissible. -- Charlie Carnes Dr. Motrin 600 mg tablets: take 1 tablet orally every 6 hours as needed for pain, stiffness or swelling. Dispense thirty (30). No refill. Substitution is permissible. -- Charlie Carnes Dr. Percocet 5 mg/325 mg: take 1 tablet orally every 6 hours as needed for pain. Dispense twenty (20). No refill. Substitution is permissible. -- Charlie Carnes Dr.
== END 2016-12-01 18:00 | disposition home or self-care (01) ==
LOC: ED SRH 15:10
DX: N13.30 Unspecified hydronephrosis (principal); N23 Unspecified renal colic; R31.29 Other microscopic hematuria; R11.0 Nausea; I10 Essential (primary) hypertension; Z79.899 Other long term (current) drug therapy
CPT/HCPCS: 90004; 90100; 90469; 95059